=== PATIENT | female | born 1985 | race Caucasian/White ===

== ENCOUNTER 2017-07-03 04:58 | Emergency (ER) | payer SELFPAY ==
[~2017-07-03] VITALS: Ht 172.7 cm; Wt 90.7 kg
[~2017-07-03 04:58] MED LIST: ALER-CAP25 MG PO; AUGMENTIN 875-1 EACH PO; BACLOFEN10 MG PO; COMPAZINE25 MG PR; FLEXERIL10 MG PO; GENTAMICIN SUL3.5 GM OS; IBUPROFEN600 MG PO; IBUPROFEN800 MG PO; NORCO 5-325 TA1 EACH PO; OMEPRAZOLE20 MG PO; PAIN RELIEF500 M1 PO; PENICILLIN V P500 MG PO; PROMETHAZINE-COD5 ML PO; PROVENTIL HFA6.7 GM INH; TRAZODONE HCL100 MG PO; TYLENOL325 MG PO; VOLTAREN-XR100 MG PO; WELLBUTRIN XL300 MG PO
[2017-07-03] MEDS ORDERED: BACTRIM DS TAB1 EACH PO (05:39)
[2017-10-22] MEDS ORDERED: PYRIDIUM200 MG PO (20:06)
[2017-10-22] MEDS ORDERED: CEPHALEXIN500 MG PO (20:06)
== END 2017-07-03 06:00 | disposition home or self-care (01) ==
LOC: ED 04:58
DX: S60.410A Abrasion of right index finger, initial encounter (principal); L02.414 Cutaneous abscess of left upper limb; L08.9 Local infection of the skin and subcutaneous tissue, unspecified; F17.200 Nicotine dependence, unspecified, uncomplicated; X58.XXXA Exposure to other specified factors, initial encounter
CPT/HCPCS: 99283

== ENCOUNTER → 2017-10-22 | Emergency (ER) | payer SELFPAY ==
[~2017-10-22] VITALS: Ht 172.7 cm; Wt 90.7 kg
[~2017-10-22] MED LIST changes: +BACTRIM DS TAB1 EACH PO; +CEPHALEXIN500 MG PO; +PYRIDIUM200 MG PO
== END | disposition home or self-care (01) ==
LOC: ED 19:16
DX: N39.0 Urinary tract infection, site not specified (principal); F17.200 Nicotine dependence, unspecified, uncomplicated
CPT/HCPCS: 81001; 84703; 99283

== ENCOUNTER 2017-12-04 12:59 | Emergency (ER) | payer SELFPAY ==
[~2017-12-04] VITALS: Ht 172.7 cm; Wt 90.7 kg
== END 2017-12-04 13:24 | disposition home or self-care (01) ==
LOC: ED 12:59
DX: L02.211 Cutaneous abscess of abdominal wall (principal)

== ENCOUNTER 2018-03-14 08:59 | Emergency (ER) | payer OTHER ==
[~2018-03-14] VITALS: Ht 172.7 cm; Wt 90.7 kg
[2018-03-14] MEDS ORDERED: CLEOCIN HCL300 MG PO (10:10)
[2018-03-14] MEDS ORDERED: NORCO 5-325 TA1 EACH PO (10:58)
== END 2018-03-14 12:19 | disposition home or self-care (01) ==
LOC: ED 08:59
DX: L03.312 Cellulitis of back [any part except buttock and flank] (principal); F17.200 Nicotine dependence, unspecified, uncomplicated
CPT/HCPCS: 76604; 99283

== ENCOUNTER 2018-03-18 08:51 | Emergency (ER) | payer OTHER ==
[~2018-03-18] VITALS: Ht 172.7 cm; Wt 90.7 kg
[~2018-03-18 08:51] MED LIST changes: +CLEOCIN HCL300 MG PO
--- OUTSIDE RECORDS SUMMARY | 2018-03-18 08:56 | XMS ---
PreManage Notification: KAMI TORRES Security [employer] Events No recent Security Events currently on file CRITERIA MET - [facility] - 2 Visits in 30 Days CARE PROVIDERS Sophie Barth Treatment Current PAC PHONE: Unknown Ingrid has no Care Guidelines for this patient. E.DXiao VISIT COUNT ([address] [facility] TOTAL 5 NOTE: Visits indicate total known visits. ED/UCC VISIT TRACKING (12 MO.) 03/18/2018 08:52 [facility] [place] TYPE: Emergency COMPLAINT: - POSS ABSCESS 03/14/2018 08:59 [facility] [place] TYPE: Emergency COMPLAINT: - POSS ABSCESS DIAGNOSES: - Nicotine dependence, unspecified, uncomplicated - Cellulitis of back [any part except buttock] - Localized swelling, mass and lump, unspecified 12/04/2017 13:00 [facility] [place] TYPE: Emergency COMPLAINT: - POSS SPIDER BITE/MSE DIAGNOSES: - Cutaneous abscess of abdominal wall 10/22/2017 19:16 [facility] [place] TYPE: Emergency COMPLAINT: - POSS UTI DIAGNOSES: - Dysuria - Urinary tract infection, site not specified - Nicotine dependence, unspecified, uncomplicated 07/03/2017 04:59 [facility] [place] TYPE: Emergency COMPLAINT: - POSS INFECTION DIAGNOSES: - Exposure to other specified factors, initial encounter - Local infection of the skin and subcutaneous tissue, unspecified - Nicotine dependence, unspecified, uncomplicated - Cutaneous abscess of left upper limb - Abrasion of right index finger, initial encounter INPATIENT VISIT TRACKING (12 MO.) No inpatient visits to display in this time frame [id number]
[2018-03-18] MEDS ORDERED: NORCO 5-325 TA1 EACH PO (09:29)
[2018-03-18] MEDS ORDERED: IBUPROFEN600 MG PO (09:29)
== END 2018-03-18 09:55 | disposition home or self-care (01) ==
LOC: ED 08:51
PROC: 0H96XZZ Drainage of Back Skin, External Approach (ICD-10-PCS; principal; 2018-03-18)
DX: L02.212 Cutaneous abscess of back [any part, except buttock and flank] (principal)
CPT/HCPCS: 10060; 87070; 87077; 87186; 87205; 99282

== ENCOUNTER 2018-03-21 17:50 | Emergency (ER) | payer OTHER ==
[~2018-03-21] VITALS: Ht 172.7 cm; Wt 90.7 kg
[2018-03-21] MEDS ORDERED: NORCO 5-325 TA1 EACH PO (18:53)
[2018-03-21] MEDS ORDERED: DOXYCYCLINE HY100 MG PO (18:53)
--- OUTSIDE RECORDS SUMMARY | 2018-03-21 19:25 | XMS ---
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 03/18/2018-Current PHONE: [phone] Sophie Barth Current PAC PHONE: Unknown Ingrid has no Care Guidelines for this patient. Eli VISIT COUNT (12 MO.) [address] [place] [address] TOTAL 6 NOTE: Visits indicate total known visits. ED/UCC VISIT TRACKING (12 MO.) 03/21/2018 17:50 [facility] TYPE: Emergency COMPLAINT: - WOUND CHECK 03/18/2018 08:52 [facility] [place] TYPE: Emergency [...] visits to display in this time frame [id number]
== END 2018-03-21 19:24 | disposition home or self-care (01) ==
LOC: ED 17:50
DX: Z48.817 Encounter for surgical aftercare following surgery on the skin and subcutaneous tissue (principal)
CPT/HCPCS: 99282

== ENCOUNTER → 2019-05-16 | Emergency (ER) | payer OTHER ==
[~2019-05-16] VITALS: Ht 172.7 cm; Wt 90.7 kg
[~2019-05-16] MED LIST changes: +CEFUROXIME250 MG PO; +DOXYCYCLINE HY100 MG PO
== END ==
LOC: ED 09:41
DX: N39.0 Urinary tract infection, site not specified (principal); F32.9 Major depressive disorder, single episode, unspecified; F41.9 Anxiety disorder, unspecified; F17.200 Nicotine dependence, unspecified, uncomplicated
CPT/HCPCS: 81001; 84703; 87077; 87088; 87186; 96372; 99283; J0696

== ENCOUNTER 2020-07-26 19:32 | Emergency (ER) | payer OTHER ==
[~2020-07-26] VITALS: Ht 172.7 cm; Wt 90.7 kg
== END 2020-07-26 21:39 | disposition home or self-care (01) ==
LOC: ED 19:32
DX: J02.0 Streptococcal pharyngitis (principal); F17.200 Nicotine dependence, unspecified, uncomplicated
CPT/HCPCS: 87880; 96372; 99283; J0561

== ENCOUNTER 2021-01-21 16:13 | Emergency (ER) | payer OTHER ==
[~2021-01-21] VITALS: Ht 172.7 cm; Wt 113.4 kg
[2021-01-21] MEDS ORDERED: CEPHALEXIN500 M1 PO (17:51)
== END 2021-01-21 18:10 | disposition home or self-care (01) ==
LOC: ED 16:13
DX: N39.0 Urinary tract infection, site not specified (principal); F17.200 Nicotine dependence, unspecified, uncomplicated
CPT/HCPCS: 81001; 87088; 99284

== ENCOUNTER 2021-01-27 14:26 | Emergency (ER) | payer OTHER ==
[~2021-01-27] VITALS: Ht 172.7 cm; Wt 113.4 kg
[~2021-01-27 14:26] MED LIST changes: +CEPHALEXIN500 M1 PO
--- OUTSIDE RECORDS SUMMARY | 2021-01-27 14:34 | XMS ---
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 Eli VISIT COUNT (12 MO.) 3 [facility] TOTAL 3 NOTE: Visits indicate total known visits. ED/UCC VISIT TRACKING (12 MO.) 01/27/2021 14:27 [facility] TYPE: Emergency COMPLAINT: - FLU SYMPTOMS 01/21/2021 16:14 [facility] TYPE: Emergency COMPLAINT: - POSS UTI DIAGNOSES: - Unspecified abdominal pain - Nicotine dependence, unspecified, uncomplicated - Urinary tract infection, site not specified 07/26/2020 19:33 [facility] [place] TYPE: Emergency COMPLAINT: - SORE THROAT DIAGNOSES: - Nicotine dependence, unspecified, uncomplicated - Acute pharyngitis, unspecified - Streptococcal pharyngitis INPATIENT VISIT TRACKING (12 MO.) No inpatient visits to display in this time frame [id number]
== END 2021-01-27 20:48 | disposition home or self-care (01) ==
LOC: ED 14:26
DX: U07.1 COVID-19 (principal); F17.200 Nicotine dependence, unspecified, uncomplicated
CPT/HCPCS: 71045; 99283-25; A9270; C9803; U0003

== ENCOUNTER 2021-04-18 00:23 | Emergency (ER) | payer OTHER ==
[~2021-04-18] VITALS: Ht 172.7 cm; Wt 95.2 kg
== END 2021-04-18 02:35 | disposition home or self-care (01) ==
LOC: ED 00:23
DX: U07.1 COVID-19 (principal); F17.200 Nicotine dependence, unspecified, uncomplicated
CPT/HCPCS: 99283; A9270; U0003

== ENCOUNTER 2021-06-23 08:14 | Emergency (ER) | payer OTHER ==
[~2021-06-23] VITALS: Ht 172.7 cm; Wt 107.9 kg
== END 2021-06-23 10:47 | disposition home or self-care (01) ==
LOC: ED 08:14
DX: B34.9 Viral infection, unspecified (principal); Z20.822 Contact with and (suspected) exposure to COVID-19; F17.200 Nicotine dependence, unspecified, uncomplicated
CPT/HCPCS: 99283; C9803; U0003

== ENCOUNTER 2021-10-05 14:13 | Emergency (ER) | payer OTHER ==
[~2021-10-05] VITALS: Ht 172.7 cm; Wt 111.4 kg
[2021-10-05] MEDS ORDERED: AMOXICILLIN500 MG PO (15:02)
== END 2021-10-05 15:24 | disposition home or self-care (01) ==
LOC: ED 14:13
DX: K08.89 Other specified disorders of teeth and supporting structures (principal); M19.90 Unspecified osteoarthritis, unspecified site; F17.200 Nicotine dependence, unspecified, uncomplicated
CPT/HCPCS: 99282

== ENCOUNTER 2022-01-10 07:11 | Emergency (ER) | payer OTHER ==
[~2022-01-10] VITALS: Ht 172.7 cm; Wt 111.1 kg
[~2022-01-10 07:11] MED LIST changes: +AMOXICILLIN500 MG PO
== END 2022-01-10 08:21 | disposition home or self-care (01) ==
LOC: ED 07:11
DX: J06.9 Acute upper respiratory infection, unspecified (principal); F17.200 Nicotine dependence, unspecified, uncomplicated; Z20.822 Contact with and (suspected) exposure to COVID-19
CPT/HCPCS: 87502; C9803; U0003

== ENCOUNTER 2022-03-26 09:04 | Emergency (ER) | payer OTHER ==
[~2022-03-26] VITALS: Ht 172.7 cm; Wt 111.1 kg
[2022-03-26] MEDS ORDERED: DOXYCYCLINE HY100 MG PO (09:54)
== END 2022-03-26 10:04 | disposition home or self-care (01) ==
LOC: ED 09:04
DX: S90.561A Insect bite (nonvenomous), right ankle, initial encounter (principal); F17.200 Nicotine dependence, unspecified, uncomplicated; W57.XXXA Bitten or stung by nonvenomous insect and other nonvenomous arthropods, initial encounter
CPT/HCPCS: 99282

== ENCOUNTER 2022-06-13 12:44 | Emergency (ER) | payer OTHER ==
[~2022-06-13] VITALS: Ht 172.7 cm; Wt 111.4 kg
[2022-06-13] MEDS ORDERED: NEOMYCIN-POLYMY10 M1 OTIC (15:16)
== END 2022-06-13 15:26 | disposition home or self-care (01) ==
LOC: ED 12:44
DX: J06.9 Acute upper respiratory infection, unspecified (principal); H60.91 Unspecified otitis externa, right ear; F17.200 Nicotine dependence, unspecified, uncomplicated; Z20.822 Contact with and (suspected) exposure to COVID-19
CPT/HCPCS: 87502; 87880; 99283; A9270; C9803; U0003

== ENCOUNTER 2024-01-19 17:41 | Emergency (ER) | payer OTHER ==
[~2024-01-19] VITALS: Ht 172.7 cm; Wt 103.8 kg
[~2024-01-19 17:41] MED LIST changes: +NEOMYCIN-POLYMY10 M1 OTIC
[2024-01-19] MEDS ORDERED: CEPHALEXIN500 M1 PO (18:04)
[2024-01-19] MEDS ORDERED: HYDROCODON-ACE1 EA10 PO (18:04)
[2024-01-19 18:13] VITALS: BP 134/89
== END 2024-01-19 18:13 | disposition home or self-care (01) ==
LOC: ED 17:41
DX: K08.89 Other specified disorders of teeth and supporting structures (principal); F17.200 Nicotine dependence, unspecified, uncomplicated
CPT/HCPCS: 99282

== ENCOUNTER 2024-07-15 19:19 | Emergency (ER) | payer OTHER ==
[~2024-07-15] VITALS: Ht 172.7 cm; Wt 99.8 kg
[~2024-07-15 19:19] MED LIST changes: +HYDROCODON-ACE1 EA10 PO
[2024-07-15] MEDS ORDERED: AZITHROMYCIN250 MG PO (20:25)
[2024-07-15] MEDS ORDERED: PSEUDOEPHEDRINE HCL 30 MG TAB PO ONE (20:45)
[2024-07-15] MEDS ORDERED: BENZONATATE 100 MG CAP PO ONE (20:45)
[2024-07-15] MEDS ORDERED: ALBUTEROL/IPRATROPIUM 3 ML NEB INH ONE (20:45)
[2024-07-15 21:27] LABS: INFLUENZA B NAA NEGATIVE (NEGATIVE); RESPIRATORY SYNCYTIAL VIR NAA NEGATIVE (NEGATIVE)
[2024-07-15] MEDS ORDERED: BENZONATATE100 MG PO (22:02)
[2024-07-15] MEDS ORDERED: PREDNISONE20 MG PO (22:02)
[2024-07-15] MEDS ORDERED: ALBUTEROL SULFATE 8 GM HOME.PACK INH ONE (22:15)
[2024-07-15] MEDS ORDERED: INHALER, ASSIST DEVICES 1 EACH SPACER MISC ONE (22:15)
[2024-07-15] MEDS ORDERED: OSELTAMIVIR PHOSPHATE 75 MG HOME.PACK PO ONE (22:15)
[2024-07-15 22:19] VITALS: BP 145/80
== END 2024-07-15 22:22 | disposition home or self-care (01) ==
LOC: ED 19:19
PROVIDERS: Family Medicine
DX: J10.1 Influenza due to other identified influenza virus with other respiratory manifestations (principal); F17.200 Nicotine dependence, unspecified, uncomplicated; Z79.2 Long term (current) use of antibiotics
CPT/HCPCS: 71045; 87502; 94640; 94664; 94667; 99284-25; A9270

== ENCOUNTER 2025-06-22 15:16 | Emergency (ER) | payer OTHER ==
[~2025-06-22] VITALS: Ht 172.7 cm; Wt 99.7 kg
[~2025-06-22 15:16] MED LIST changes: +AZITHROMYCIN250 MG PO; +BENZONATATE100 MG PO; +PREDNISONE20 MG PO
[2025-06-22] MEDS ORDERED: TRIMETHOPRIM/SULFAMETHOXAZOLE 1 EA HOME.PACK PO ONE (18:00)
[2025-06-22] MEDS ORDERED: BACTRIM DS TAB1 EACH PO (18:03)
== END 2025-06-22 18:21 | disposition home or self-care (01) ==
LOC: ED 15:16
DX: L02.421 Furuncle of right axilla (principal); F17.200 Nicotine dependence, unspecified, uncomplicated
CPT/HCPCS: 99282; A9270